=== PATIENT | male | born 1975 | race Caucasian/White ===

== ENCOUNTER 2024-04-19 15:44 | Outpatient (CLI) | payer OTHER, SELFPAY ==
--- NOTE | ~2024-04-19 | CT_ITS ---
EXAMINATION: CT lung screening DATE: 04/19/2024 15:59 INDICATION: personal hx of nicotine dependence TECHNIQUE: Computed tomography (CT) of the chest was performed without intravenous contrast. Addition al 3D reconstructions utilizing coronal maximum intensity projection (MIP) were performed. Automated exposure control and iterative reconstruction technique were employed. The dose-length product was 17 0.84 mGy-cm. COMPARISON: None FINDINGS: There are couple tiny calcified nodules in the bilateral upper lobes. No noncalcified pulmonary nodul es, pneumonia, pulmonary edema or pleural effusion. Heart size is normal. No pericardial effusion. Th oracic aorta is normal in caliber. No pathologically enlarged thoracic lymphadenopathy. Visualized up per abdomen is unremarkable. Mild thoracic spondylosis with chronic likely physiologic mild anterior wedging at T11 and T12. IMPRESSION: 1. Lung-RADS category 1: Negative. Continue annual screening with noncontrast low-dose chest CT in 12 months. Reviewed, dictated and finalized at location A. [employer] IMPRESSION: 1. Lung-RADS category 1: Negative. Continue annual screening with noncontrast l ow-dose chest CT in 12 months.
== END 2024-04-19 15:45 | disposition home or self-care (01) ==
LOC: MICIMG 15:46
PROVIDERS: PCP Family Medicine; Visit Provider Family Medicine
DX: Z12.2 Encounter for screening for malignant neoplasm of respiratory organs (principal); Z87.891 Personal history of nicotine dependence
CPT/HCPCS: 71271